=== PATIENT | female | born 1950 | race Caucasian/White ===

== ENCOUNTER → 2018-03-11 14:30 | Outpatient (CLI) | payer MEDICARE, SELFPAY ==
--- NOTE | 2018-03-11 14:30 | DT_ITS ---
This patient was seen during an EMR downtime March 09, 2018 - March 16, 2018. This patient may have a combination of paper and electronic documentation or all paper documentation. All documentation is viewable within the e-chart portion of [facility] for each patient visit.
== END ==
PROVIDERS: Family Provider Family Medicine; PCP Family Medicine; Visit Provider Family Medicine
DX: N39.0 Urinary tract infection, site not specified (principal)
CPT/HCPCS: 87077; 87086; 87088; 87186

== ENCOUNTER → 2018-03-12 08:42 | Outpatient (CLI) | payer MEDICARE, SELFPAY ==
--- NOTE | 2018-03-12 08:42 | DT_ITS ---
This patient was seen during an EMR downtime March 09, 2018 - March 16, 2018. This patient may have a combination of paper and electronic documentation or all paper documentation. All documentation is viewable within the e-chart portion of [facility] for each patient visit.
[2018-03-17 02:56] LABS: BUN 19 mg/dL (7-18); BUN/Creat Ratio 20.4 RATIO (10-20); Cholesterol 145 mg/dL (200); Creatinine, Serum 0.93 mg/dL (0.55-1.02); EST Glomerular Filtration Rate 64 mL/min (>60); Est Glom Filt Rate - Afr Amer 78 mL/min (>60); Glucose 94 mg/dL (74-106); Potassium 3.6 mmol/L (3.5-5.1); Sodium Level 144 mmol/L (136-145); Triglycerides 66 mg/dL; Very Low Density Lipoprotein 13 mg/dL (5-40)
[2018-03-17 02:57] LABS: Anion Gap 8 (5-15); Chloride 109 mmol/L (98-107); High Density Lipoprotein 82 mg/dL; Thyroid Stim Hormone (TSH) 0.53 uIU/mL (0.358-3.74)
== END ==
PROVIDERS: Family Provider Family Medicine; PCP Family Medicine; Visit Provider Family Medicine
DX: E78.5 Hyperlipidemia, unspecified (principal); E03.9 Hypothyroidism, unspecified
CPT/HCPCS: 36415; 80048; 80061; 84443

== ENCOUNTER → 2018-08-24 09:59 | Outpatient (CLI) | payer MEDICARE, SELFPAY ==
--- NOTE | 2018-08-24 10:09 | RAD_ITS ---
STUDY: X-RAY - LEFT KNEE REASON FOR EXAM: Anterior knee pain radiating medially, no specific injury. TECHNIQUE: 4 view(s) of the knee. COMPARISON: None. FINDINGS: Normal visualized distal femur. Normal visualized proximal tibia and fibula. Normal proximal tibiofibular articulation. There is canq-sh-kpptqkmd joint space narrowing of the medial femorotibial compartment. Normal lateral femorotibial compartment. There is mild joint space narrowing of the patellofemoral articulation. There is an enthesophyte at the superior pole of the patella. RAD/Knee 4 or More Views IMPRESSION: Arthrosis of the medial femorotibial and patellofemoral compartments. Electronically Signed: Mike León MD at 11:39 EST Tel , Service support ,
[2018-08-24 13:01] LABS: T3 Total - Triiodothyronine 0.83 ng/mL (0.6-1.81)
[2018-08-24 13:10] LABS: Anion Gap 9 (5-15); BUN 20 mg/dL (7-18); BUN/Creat Ratio 21.6 RATIO (10-20); Calcium,Total 9.2 mg/dL (8.5-10.1); Chloride 106 mmol/L (98-107); Cholesterol 167 mg/dL (200); Creatinine, Serum 0.93 mg/dL (0.55-1.02); EST Glomerular Filtration Rate 64 mL/min (>60); Est Glom Filt Rate - Afr Amer 77 mL/min (>60); Glucose 91 mg/dL (74-106); High Density Lipoprotein 83 mg/dL; Potassium 4.2 mmol/L (3.5-5.1); Sodium Level 143 mmol/L (136-145); T4 Total, Thyroxin 13.1 ug/dL (4.8-13.9); Thyroid Stim Hormone (TSH) 1.38 uIU/mL (0.358-3.74); Triglycerides 80 mg/dL; Very Low Density Lipoprotein 16 mg/dL (5-40)
== END ==
PROVIDERS: Family Provider Family Medicine; PCP Family Medicine; Referring Provider Family Medicine; Visit Provider Family Medicine
DX: E78.5 Hyperlipidemia, unspecified (principal); I10 Essential (primary) hypertension; E03.9 Hypothyroidism, unspecified; M17.12 Unilateral primary osteoarthritis, left knee
CPT/HCPCS: 36415; 73564; 80048; 80061; 84436; 84443; 84480

== ENCOUNTER → 2018-09-18 10:36 | Outpatient (CLI) | payer MEDICARE, SELFPAY ==
--- NOTE | 2018-09-18 10:39 | BI_ITS ---
MAMMOGRAPHY - BILATERAL SCREENING REASON FOR EXAM: Female, 68 years old. Routine annual screening examination. PERTINENT HISTORY: Aunt with breast cancer. TECHNIQUE: Digital bilateral breast ke (3D mammographic acquisition) in the CC and MLO projections. 2-D mediolateral oblique (MLO) and craniocaudad (CC) views of both breasts were obtained. CAD: Full Field Digital Mammography with Computer Added Detection was performed. COMPARISON: Comparison is made with prior study dated September 03, 2017 and August 26, 2016. FINDINGS: Breast Composition: The breasts are heterogeneously dense, which may obscure small masses. There are no dominant masses or suspicious calcifications. No other significant abnormalities are identified. There has been no significant change since the prior study. BI/SCREENING MAMM (CAD), BILAT IMPRESSION: Stable bilateral screening mammogram. Yearly follow-up mammogram recommended. (A) ASSESSMENT CATEGORY: BIRADS Category 1: Negative. A letter regarding these results will be sent to the patient by the facility within 30 days. Approximately 10% of breast cancers are not detected by mammography. A normal mammogram should not delay biopsy of a clinically suspicious abnormality. [id number] Electronically Signed: Jeremi Doe MD at 13:41 EST Tel [phone], Service support ,
--- OUTSIDE RECORDS SUMMARY | 2018-11-04 01:39 | XMS RPT_ITS ---
:1950 Author Organization OHIP Care Team Providers Name Role Phone Francisco Curran Attending Unavailable Bina, Francisco Primary Care Unavailable Curran, Francisco Primary Care Unavailable Santiago Cervantes Attending Unavailable Curran, Francisco Attending Unavailable Curran, Francisco Primary Care Unavailable Bina, Francisco Attending Unavailable Curran, Francisco Primary Care Unavailable Bina, Francisco Attending Unavailable Bina, Francisco Referring Unavailable Bina, Francisco Primary Care Unavailable PROBLEMS PROBLEMS DATE TYPE CONDITION / CODE ATTENDING STATUS SOURCE 08/24/2018 Unknown E78.5 - Francisco Curran Active [facility] Hyperlipidemia, Community unspecified / Hospital E78.5(ICD-10) Repository 08/24/2018 Unknown M25.569 - Pain in CurranFrancisco herrera Active [place] unspecified knee / Community M25.569(ICD-10) Hospital Repository 08/24/2018 Unknown I10 - Essential Francisco Curran Active [facility] (primary) Community hypertension / Hospital I10(ICD-10) Repository 08/24/2018 Unknown E03.9 - Francisco Curran Active [place] Hypothyroidism, Community unspecified / Hospital E03.9(ICD-10) Repository 04/02/2018 Unknown N39.0 - Urinary CurranFrancisco herrera Active [facility] tract infection, Community site not specified Hospital / N39.0(ICD-10) Repository PROCEDURES PROCEDURES No Procedure Records FoundRESULTS RESULTS Observed: 10/12/2018 Status: F Source: [place] CULTURE, URINE 11:50 AM [facility] REPOSITORY Urine Culture ORGANISM 1: Escherichia coli Maynard Count >100,000 Escherichia coli: REACTION Amoxacillin/Clavulanic Acid $ <=2 S Ampicillin $ <=2 S Ampicillin/Sulbactam $ <=2 S Cefazolin $ <=4 S Cefepime $ <=1 S Ceftriaxone $ <=1 S Ciprofloxacin $ <=0.25 S ESBL - Ertapenim $$$ <=0.5 S Gentamicin $ <=1 S Imipenem *NF <=0.25 S Levofloxacin $ <=0.12 S Nitrofurantoin $ <=16 S Piperacillin/Tazobactam $$ <=4 S Tobramycin $ <=1 S Trimethoprim/Sulfametho $ <=20 S (NF) indicates non-formulary drug at [facility]. Approval by Infectious Disease Specialist required before non-formulary drugs may be ordered and/or dispensed. Performed By: #### M100.0650 #### [facility] [address] [facility] [place], [address] SCREENING MAMM (CAD), Observed: 09/18/2018 Status: F Source: [place] BILAT 10:39 AM [facility] REPOSITORY [facility] Imaging Services [address] [place] [address] SCREENING MAMM (CAD), BILAT MR#: [id number] Acct: [id number] Name: BLANCA GAMBINO Rep #: [id number] : 1950 F 68 From: Jeremi Doe MD PCP: Francisco Curran MD Status: [facility] Study: SCREENING MAMM (CAD), BILAT Date of Exam: 09/18/18 Exam# [id number] Ordering Dr: Francisco Curran MD MAMMOGRAPHY - BILATERAL SCREENING REASON FOR EXAM: Female, 68 years old. Routine annual screening examination. PERTINENT HISTORY: Aunt with breast cancer. TECHNIQUE: Digital bilateral breast ke (3D mammographic acquisition) in the CC and MLO projections. 2-D mediolateral oblique (MLO) and craniocaudad (CC) views of both breasts were obtained. CAD: Full Field Digital Mammography with Computer Added Detection was performed. COMPARISON: Comparison is made with prior study dated 2017 and August 26, 2016. FINDINGS: Breast Composition: The breasts are heterogeneously dense, which may obscure small masses. There are no dominant masses or suspicious calcifications. No other significant abnormalities are identified. There has been no significant change since the prior study. BI/SCREENING MAMM (CAD), BILAT IMPRESSION: Stable bilateral screening mammogram. Yearly follow-up mammogram recommended. (A) ASSESSMENT CATEGORY: BIRADS Category 1: Negative. A letter regarding these results will be sent to the patient by the facility within 30 days. Approximately 10% of breast cancers are not detected by mammography. A normal mammogram should not delay biopsy of a clinically suspicious abnormality. [id number] Electronically Signed: Jeremi Doe MD at 13:41 EST Tel [phone], Service support , CC: Francisco Curran MD Senior Associate: Signed KNEE 4 OR MORE Observed: 08/24/2018 Status: F Source: [place] VIEWS 10:06 AM [facility] REPOSITORY [facility] Imaging Services [address] [place] [address] Knee 4 or More Views MR#: [id number] Acct: [id number] Name: BLANCA GAMBINO Roney Rep #: [id number] : 1950 F 67 From: Mike León MD PCP: Francisco Curran MD Status: REG CLI Study: Knee 4 or More Views Date of Exam: 08/24/18 Exam# [id number] Ordering Dr: Francisco Curran MD STUDY: X-RAY - LEFT KNEE REASON FOR EXAM: Anterior knee pain radiating medially, no specific injury. TECHNIQUE: 4 view(s) of the knee. COMPARISON: None. FINDINGS: Normal visualized distal femur. Normal visualized proximal tibia and fibula. Normal proximal tibiofibular articulation. There is qsge-ug-giofqtom joint space narrowing of the medial femorotibial compartment. Normal lateral femorotibial compartment. There is mild joint space narrowing of the patellofemoral articulation. There is an enthesophyte at the superior pole of the patella. RAD/Knee 4 or More Views IMPRESSION: Arthrosis of the medial femorotibial and patellofemoral compartments. Electronically Signed: Mike León MD at 11:39 EST Tel , Service support , CC: Francisco Curran MD Senior Associate: Signed T3 TOTAL - TRIIODOTHYRONINE Collected: 08/24/2018 Status: F Source: [place] 10:05 AM [facility] REPOSITORY TYPE CODE TESTS RESULT OUT OF RANGE REFERENCE UNITS LAB L501.9186 0.6-1.81 ng/mL Normal T3 Total 0.83 Performed By: #### L501.9186 #### [facility] [address] [place], [place], [address] BASIC METABOLIC Collected: 08/24/2018 Status: F Source: [place] PROFILE (BMP) 10:05 AM [facility] REPOSITORY TYPE CODE TESTS RESULT OUT OF RANGE REFERENCE UNITS LAB L501.0100 74-106 mg/dL Normal GLU 91 Result Comment: Please note revised GLUCOSE reference range effective 2017. LAB L501.1000 7-18 mg/dL High BUN 20 LAB L501.1100 0.55-1.02 mg/dL Normal CREAT,SERUM 0.93 Result Comment: The validity of the calculated GFR AND GFRAA in patients over 70 years has not been determined. Clinical correlation is essential. LAB L501.1110 >60 mL/min Normal EST GFR 64 Result Comment: Non- GFR Calc LAB L501.1115 >60 mL/min Normal EST GFR - AA 77 Result Comment: GFR Calc LAB L501.1300 10-20 RATIO High BUN/CRE 21.6 LAB L501.2200 8.5-10.1 mg/dL CA Normal 9.2 LAB L501.5300 136-145 mmol/L NA Normal 143 LAB L501.5600 3.5-5.1 mmol/L K Normal 4.2 LAB L501.5900 98-107 mmol/L CL Normal 106 LAB L501.6100 21.0-32.0 mmol/L Normal CO2 28.0 LAB L501.6200 5-15 Normal GAP 9 Performed By: #### L500.2500, L500.4100, L501.9310, L501.9520 #### [facility] [address] [facility] [place], [address] LIPID PROFILE Collected: 08/24/2018 Status: F Source: [place] 10:05 AM [facility] REPOSITORY TYPE CODE TESTS RESULT OUT OF RANGE REFERENCE UNITS LAB L501.4900 200 mg/dL Normal CHOL 167 Result Comment: <200 mg/dL Desirable 200-240 mg/dL Borderline >240 mg/dL High Risk LAB L501.5000 mg/dL Normal TRIG 80 Result Comment: The drugs N-Acetylcysteine and Metamizole may falsely depress this assay. Serum Triglycerides Reference Interval Normal <150 mg/dL Borderline high 150 - 199 mg/dL High 200 - 499 mg/dL Very High > or = 500 mg/dL LAB L501.6400 mg/dL Normal HDL 83 Result Comment: The drugs N-Acetylcysteine and Metamizole may falsely depress this assay. Reference Range HDL <40 mg/dL Low HDL Cholesterol HDL >or= 60 mg/dL High HDL Cholesterol LAB L501.6500 0-130 mg/dL Normal LDL 68 LAB L501.6600 5-40 mg/dL Normal VLDL 16 Performed By: #### L500.2500, L500.4100, L501.9310, L501.9520 #### [facility] [address] [place], [address] T4 TOTAL, THYROXIN Collected: 08/24/2018 Status: F Source: [place] 10:05 AM [facility] REPOSITORY TYPE CODE TESTS RESULT OUT OF RANGE REFERENCE UNITS LAB L501.9310 4.8-13.9 ug/dL T4 Normal THYROXIN 13.1 Performed By: #### L500.2500, L500.4100, L501.9310, L501.9520 #### [facility] [address] [place], [address] THYROID STIM HORMONE Collected: 08/24/2018 Status: F Source: [place] (TSH) 10:05 AM [facility] REPOSITORY TYPE CODE TESTS RESULT OUT OF RANGE REFERENCE UNITS LAB L501.9520 0.358-3.74 uIU/mL Normal TSH 1.38 Performed By: #### L500.2500, L500.4100, L501.9310, L501.9520 #### [facility] [address] [place], [address] DOWNTIME REPORT Observed: 03/26/2018 Status: F Source: [place] 1:[address] [facility] Medical Records Department [address] [place] [address] Downtime Report MR#: [id number] Acct: [id number] Name: BLANCA GAMBINO Rep #: [id number] : 1950 67 From: Berny Brush PCP: Francisco Curran MD Status: REG CLI This patient was seen during an EMR downtime March 09, 2018 - March 16, 2018. This patient may have a combination of paper and electronic documentation or all paper documentation. All documentation is viewable within the e-chart portion of [facility] for each patient visit. DOWNTIME REPORT Observed: 03/26/2018 Status: F Source: [place] 1:[address] [facility] Medical Records Department [address] [place] [address] Downtime Report MR#: [id number] Acct: [id number] Name: BLANCA GAMBINO Rep #: [id number] : 1950 67 From: Berny Brush PCP: Francisco Curran MD Status: REG CLI This patient was seen during an EMR downtime March 09, 2018 - March 16, 2018. This patient may have a combination of paper and electronic documentation or all paper documentation. All documentation is viewable within the e-chart portion of [facility] for each patient visit. BASIC METABOLIC Collected: 03/12/2018 Status: F Source: [place] PROFILE (BMP) 8:42 AM [facility] REPOSITORY Order Comment: RESULT(S) PREVIOUSLY REPORTED ON MANUAL REQUISITION DURING DOWNTIME. TYPE CODE TESTS RESULT OUT OF RANGE REFERENCE UNITS LAB L501.0100 74-106 mg/dL Normal GLU 94 Result Comment: Please note revised GLUCOSE reference range effective 2017. LAB L501.1000 7-18 mg/dL High BUN 19 LAB L501.1100 0.55-1.02 mg/dL Normal CREAT,SERUM 0.93 Result Comment: The validity of the calculated GFR AND GFRAA in patients over 70 years has not been determined. Clinical correlation is essential. LAB L501.1110 >60 mL/min Normal EST GFR 64 LAB L501.1115 >60 mL/min Normal EST GFR - AA 78 LAB L501.1300 10-20 RATIO High BUN/CRE 20.4 LAB L501.2200 8.5-10.1 mg/dL Normal CA 9.0 LAB L501.5300 136-145 mmol/L Normal NA 144 LAB L501.5600 3.5-5.1 mmol/L Normal K 3.6 LAB L501.5900 98-107 mmol/L High CL 109 LAB L501.6100 21.0-32.0 mmol/L Normal CO2 27.0 LAB L501.6200 5-15 Normal GAP 8 Performed By: #### L500.2500, L500.4100, L501.9520 #### [facility] [address] [place], [place], [address] LIPID PROFILE Collected: 03/12/2018 Status: F Source: [place] 8:42 AM [facility] REPOSITORY Order Comment: RESULT(S) PREVIOUSLY REPORTED ON MANUAL REQUISITION DURING DOWNTIME. TYPE CODE TESTS RESULT OUT OF RANGE REFERENCE UNITS LAB L501.4900 200 mg/dL Normal CHOL 145 Result Comment: <200 mg/dL Desirable 200-240 mg/dL Borderline >240 mg/dL High Risk LAB L501.5000 mg/dL Normal TRIG 66 Result Comment: The drugs N-Acetylcysteine and Metamizole may falsely depress this assay. Serum Triglycerides Reference Interval Normal <150 mg/dL Borderline high 150 - 199 mg/dL High 200 - 499 mg/dL Very High > or = 500 mg/dL LAB L501.6400 mg/dL Normal HDL 82 Result Comment: The drugs N-Acetylcysteine and Metamizole may falsely depress this assay. Reference Range HDL <40 mg/dL Low HDL Cholesterol HDL >or= 60 mg/dL High HDL Cholesterol LAB L501.6500 0-130 mg/dL Normal LDL 50 LAB L501.6600 5-40 mg/dL Normal VLDL 13 Performed By: #### L500.2500, L500.4100, L501.9520 #### [facility] [address] [facility] [place], [address] THYROID STIM HORMONE Collected: 03/12/2018 Status: F Source: [place] (TSH) 8:42 AM [facility] REPOSITORY Order Comment: RESULT(S) PREVIOUSLY REPORTED ON MANUAL REQUISITION DURING DOWNTIME. TYPE CODE TESTS RESULT OUT OF RANGE REFERENCE UNITS LAB L501.9520 0.358-3.74 uIU/mL Normal TSH 0.53 Performed By: #### L500.2500, L500.4100, L501.9520 #### [facility] [address] [facility] [place], [address] Observed: 03/11/2018 Status: F Source: [place] CULTURE, URINE 2:30 PM [facility] REPOSITORY Urine Culture RESULT(S) PREVIOUSLY REPORTED ON MANUAL REQUISITION DURING DOWNTIME. ORGANISM 1: Enterococcus faecalis Maynard Count 80,000-100,000 Enterococcus faecalis: REACTION Ampicillin $ <=2 S Benzylpenicillin NF 2 S Gentamicin SYN-R R Linezolid $$$$ 1 S Tigecycline $$$$ <=0.12 S Streptomycin $ SYN-S S Vancomycin $ 1 S (NF) indicates non-formulary drug at [facility]. Approval by Infectious Disease Specialist required before non-formulary drugs may be ordered and/or dispensed. * CLSI guidelines does not recommend testing of cephalosporins. This interpretation is deduced from Beta-lactam/penicillin results. Performed By: #### M100.0650 #### [facility] [address] [place], [address] ALLERGIES ALLERGIES DATE TYPE / CODE NAME / CODE REACTION SEVERITY SOURCE 10/16/2016 Drug latex/S25304 Rash Unknown [facility] Allergy/4160 8921(RXNORM) Hospital 33209(SNOMED Repository CT) ENCOUNTERS ENCOUNTERS ADMIT/DISCHARGE ACCOUNT ADMITTING ENCOUNTER LOCATION SOURCE NUMBER CLASS 10/12/2018 [id number] Ambulatory [place] 1 [facility] ing:LABSPEC Repository 09/18/2018 [id number] Ambulatory [place] [facility] 9 [facility] ing:OPBI Repository 08/24/2018 [id number] Ambulatory [place] [facility] 0 [facility] ing:MTLAB Repository 03/12/2018 [id number] Ambulatory [place] 7 [facility] ing:MFPLAB Repository 03/11/2018 [id number] Ambulatory [place] 9 [facility] ing:MFPLAB Repository PAYERS PAYERS ENCOUNTER GUARANTOR PAYER SUBSCRIBER SOURCE 10/12/2018 BUTCH Lea Primary BLANCA A [place] [id number] RUFF Insurance:ANTHEM MEDUREDOB: [place] PPOPolicy [id number] 22821Kgz: (419) Number: Repository [phone] () [id number] Date:[id number] [address] [place] [address] 27721JG: 10/12/2018 Secondary NOT GIVENUNK [place] Insurance:SELF PAY [facility] Number: Effective Repository Date:2018-10-12 09/18/2018 BUTCH Lea Primary BLANCA A [place] [id number] RUFF Insurance:ANTHEM MEDUREDOB: [place] PPOPolicy [id number] 13763Lac: (419) Number: Repository [phone] () [id number] Date:[id number] [address] [place] [address] [id number]: 09/18/2018 Secondary NOT GIVENUNK [place] Insurance:SELF PAY [facility] Number: Effective Repository Date:2018-08-19 08/24/2018 BUTCH Lea Primary BLANCA A [place] [id number] RUFF Insurance:ANTHEM MEDUREDOB: Community [place] MEDIC[place] PPOPolicy [id number] [address]98[address]Ruf: (419) Number: Repository [phone] () [id number] Date:[id number] [address] [place] [address] [id number]: 08/24/2018 Secondary NOT GIVENUNK [place] Insurance:SELF PAY [facility] Number: Effective Repository Date:2018-08-24 03/12/2018 Butch Lea Primary BLANCA A [place] [id number] Ruff Insurance:ANTHEM MEDUREDOB: Community [place] MEDICARE OPolicy [id number] [facility] 576[address]Fmj: (419) Number: Repository [phone] () [id number] Date:[id number] [address] [place] [address] [id number]: 03/12/2018 Secondary NOT GIVENUNK [place] Insurance:SELF PAY [facility] Number: Effective Repository Date:2018-03-12 03/11/2018 Butch Lea Primary BLANCA A [place] [id number] Ruff Insurance:ANTHEM MEDUREDOB: [place] MEDIC[place] OPolicy [id number] 417[address]Spp: (419) Number: Repository [phone] () [id number] Date:[id number] [id number] [place] [address] [id number]: 03/11/2018 Secondary NOT GIVENUNK [place] Insurance:SELF PAY [facility] Number: Effective Repository Date:2018-03-11
== END ==
PROVIDERS: Family Provider Family Medicine; PCP Family Medicine; Visit Provider Family Medicine
DX: Z12.31 Encounter for screening mammogram for malignant neoplasm of breast (principal)
CPT/HCPCS: 77063; 77067

== ENCOUNTER → 2018-10-12 12:25 | Outpatient (CLI) | payer MEDICARE, SELFPAY | PROVIDERS: Family Provider Family Medicine; PCP Family Medicine; Visit Provider Nurse Practitioner Family | DX: N39.0 Urinary tract infection, site not specified (principal) | CPT/HCPCS: 87077; 87086; 87088; 87186 ==

== ENCOUNTER → 2019-02-18 09:18 | Outpatient (CLI) | payer MEDICARE, SELFPAY ==
--- NOTE | 2019-02-18 09:20 | RAD_ITS ---
HISTORY: shoulder pain, no injury COMPARISON: 12/02/16 radiographs FINDINGS: XR Shoulder Min 2 Views: Left SOFT TISSUES: No acute findings. No radiopaque foreign body. BONES/JOINTS: No acute fracture or subluxation. Normal alignment. Prominent degenerative changes are noted. No destructive changes observed. RAD/Shoulder min 2 Views IMPRESSION: Prominent degenerative changes. No acute fracture or dislocation. No significant change. at 2125 Reported and signed by: José Miguel Evans MD Electronically Signed: José Miguel Evans, at 21:24 EDT Tel , Service support ,
--- NOTE | 2019-02-18 09:22 | RAD_ITS ---
HISTORY: knee pain, no injury COMPARISON: 08/24/18 left knee radiographs. FINDINGS: XR Knee Complete 4 Views or More: Left SOFT TISSUES: No acute findings. No radiopaque foreign body. BONES/JOINTS: No acute fracture or subluxation. Normal alignment. Degenerative changes similar to prior most prominent in the medial compartment. No destructive changes observed. Spurring upper pole of the patella again demonstrated. RAD/Knee 4 or More Views IMPRESSION: Degenerative changes most prominent in the medial compartment. No acute fracture or dislocation. at 2136 Reported and signed by: José Miguel Evans MD Electronically Signed: José Miguel Evans, at 21:35 EDT Tel , Service support ,
--- NOTE | 2019-02-18 09:22 | RAD_ITS ---
HISTORY: knee pain, no injury COMPARISON: None FINDINGS: XR Knee Complete 4 Views or More: Right. SOFT TISSUES: No acute findings. No radiopaque foreign body. BONES/JOINTS: No acute fracture or subluxation. Normal alignment. Moderate degenerative changes medial compartment. Mild degenerative changes lateral and patellofemoral compartment. Spurring upper pole of the patella. No destructive changes observed. RAD/Knee 4 or More Views IMPRESSION: Degenerative changes most prominent in the medial compartment. No acute fracture or dislocation. at 2135 Reported and signed by: José Miguel Evans MD Electronically Signed: José Miguel Evnas, at 21:34 EDT Tel , Service support ,
--- NOTE | 2019-02-18 09:22 | RAD_ITS ---
HISTORY: pain, no injury EXAM/TECHNIQUE: XR Spine Lumbar Min 4 Views: COMPARISON: CT abdomen pelvis 10/05/16. FINDINGS: # of images incl. paperwork: 5 No fracture or dislocation or osseous destruction. Mild right scoliosis centered at T12, mild grade 1 degenerative anterolisthesis of L3 on L4 and L4 on L5 unchanged. Severe facet degeneration mid and lower lumbar spine. No acute findings in the soft tissues. Cholecystectomy clips right upper quadrant. RAD/L/S Spine Min 4 Views IMPRESSION: No acute findings. Severe facet degeneration lower lumbar spine. at 2138 Reported and signed by: José Miguel Evans MD Electronically Signed: José Miguel Evans, at 21:37 EDT Tel , Service support ,
--- NOTE | 2019-02-18 09:22 | RAD_ITS ---
HISTORY: shoulder pain, no injury COMPARISON: 12/02/16 radiographs. FINDINGS: XR Shoulder Min 2 Views: Right. SOFT TISSUES: No acute findings. No radiopaque foreign body. BONES/JOINTS: No acute fracture or subluxation. Normal alignment. Degenerative changes are noted. Subcentimeter loose body along cephalad aspect of the glenohumeral joint unchanged. No destructive changes observed. RAD/Shoulder min 2 Views IMPRESSION: Degenerative changes with subcentimeter loose body. No acute fracture or dislocation. at 2124 Reported and signed by: José Miguel Evans MD Electronically Signed: José Miguel Evans, at 21:23 EDT Tel , Service support ,
== END ==
PROVIDERS: Family Provider Family Medicine; PCP Family Medicine; Referring Provider Family Medicine; Visit Provider Family Medicine
DX: M19.012 Primary osteoarthritis, left shoulder (principal); M19.011 Primary osteoarthritis, right shoulder; M24.011 Loose body in right shoulder; M51.36 Other intervertebral disc degeneration, lumbar region; M17.0 Bilateral primary osteoarthritis of knee
CPT/HCPCS: 72110; 73030; 73564

== ENCOUNTER → 2019-02-22 09:36 | Outpatient (CLI) | payer MEDICARE, SELFPAY ==
[2019-02-22 13:18] LABS: BUN 23 mg/dL (7-18); Creatinine, Serum 0.88 mg/dL (0.55-1.02); Glucose 89 mg/dL (74-106)
[2019-02-22 13:19] LABS: Anion Gap 8 (5-15); BUN/Creat Ratio 26.1 RATIO (10-20); Calcium,Total 9.1 mg/dL (8.5-10.1); Chloride 109 mmol/L (98-107); Cholesterol 157 mg/dL (200); EST Glomerular Filtration Rate 67 mL/min (>60); Est Glom Filt Rate - Afr Amer 81 mL/min (>60); High Density Lipoprotein 82 mg/dL; Potassium 3.9 mmol/L (3.5-5.1); Sodium Level 144 mmol/L (136-145); Thyroid Stim Hormone (TSH) 1.09 uIU/mL (0.358-3.74); Triglycerides 63 mg/dL; Very Low Density Lipoprotein 13 mg/dL (5-40)
== END ==
PROVIDERS: Family Provider Family Medicine; PCP Family Medicine; Visit Provider Family Medicine
DX: E03.9 Hypothyroidism, unspecified (principal); I10 Essential (primary) hypertension
CPT/HCPCS: 36415; 80048; 80061; 84443

== ENCOUNTER → 2019-07-19 11:40 | Outpatient (CLI) | payer MEDICARE, SELFPAY ==
--- NOTE | 2019-07-19 11:43 | RAD_ITS ---
STUDY: X-RAY - ACUTE ABDOMINAL SERIES REASON FOR EXAM: Female, 68 years old. Left flank pain TECHNIQUE: Single view of the chest. Supine, and upright view(s) of the abdomen were obtained. COMPARISON: None. FINDINGS: The lungs are clear and expanded. Normal size heart. Normal mediastinum and mirian. Normal visualized pulmonary arteries. Normal visualized aortic arch and descending thoracic aorta. There is a non-specific bowel gas pattern. Postop changes status post cholecystectomy.. Lumbar spine demonstrates scoliosis and degenerative change. RAD/Acute Abdomen Inc Chest IMPRESSION: Nonspecific abdomen and pelvis. Electronically Signed: Huan Brandt MD at 17:12 EDT , Service support ,
== END ==
PROVIDERS: Family Provider Family Medicine; PCP Family Medicine; Referring Provider Nurse Practitioner Family; Visit Provider Nurse Practitioner Family
DX: R10.9 Unspecified abdominal pain (principal)
CPT/HCPCS: 74022; 87086

== ENCOUNTER → 2019-08-23 09:33 | Outpatient (CLI) | payer MEDICARE, SELFPAY ==
[2019-08-23 13:09] LABS: AST(SGOT) 34 U/L (15-37); Alanine Aminotransfer ALT/SGPT 48 U/L (13-56); Albumin, Serum 3.6 g/dL (3.2-5.0); Alkaline Phosphatase 94 U/L (45-117); Anion Gap 8 (5-15); BUN 22 mg/dL (7-18); BUN/Creat Ratio 24.5 RATIO (10-20); Calcium,Total 9.1 mg/dL (8.5-10.1); Chloride 107 mmol/L (98-107); Cholesterol 192 mg/dL (200); EST Glomerular Filtration Rate 66 mL/min (>60); Est Glom Filt Rate - Afr Amer 80 mL/min (>60); Globulin 3.5 g/dL (2.2-4.2); Glucose 84 mg/dL (74-106); High Density Lipoprotein 100 mg/dL; Potassium 3.6 mmol/L (3.5-5.1); Protein, Total 7.1 g/dL (6.4-8.2); Sodium Level 141 mmol/L (136-145); Thyroid Stim Hormone (TSH) 6.28 uIU/mL (0.358-3.74); Triglycerides 83 mg/dL; Very Low Density Lipoprotein 17 mg/dL (5-40)
== END ==
PROVIDERS: Family Provider Family Medicine; PCP Family Medicine; Visit Provider Family Medicine
DX: E78.00 Pure hypercholesterolemia, unspecified (principal); E03.9 Hypothyroidism, unspecified
CPT/HCPCS: 36415; 80053; 80061; 84443

== ENCOUNTER 2019-08-27 14:49 | Outpatient (RCR) | payer MEDICARE, SELFPAY ==
[2019-08-23 10:32] VITALS: BMI 29.0
--- NOTE | 2019-08-30 08:16 | HP.PTEVAL ---
Patient's Visit Information BLANCA GAMBINO is a 68 year old F referred to Physical Therapy by Иван Forbes DO with a diagnosis of B shoulder OA. Date of Evaluation: 08/27/19 Physical Therapist: Jm Lewis DPT - Visit Plan Frequency: 1x/Week Duration: 4 Weeks Plan: Start with HEP for gentle AROM, and shoulder stability/strengthening exercises. Pt. advised to avoid painful exercises. Pt. desired to complete on own. I have to follow up with PT in 2 weeks if needed. Pt. will be DC in 4 weeks if no follow up has occured. - Subjective Findings: Pt. is here today for her initial evaluation with diagnosis of B shoulder OA. Pt. reports having pain for a few years, but has become much worse over the past year. She reports increased pain with lifting, dressing, bathing (especially hair and behind her back), sleep and household work. Pt. denies N/T in either UE. Pt. reports a lot of crepitus with most shoulder mobility. She did recently have injections which have helped. She was given several options including: PT, injection and/or surgery.Pt. chose PT and injection. Pt. 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 - Pain R shoulder Pain Intensity (Out of 10): 2 Pain Intensity Range: 1, 6 L shoulder Pain Intensity (Out of 10): 2 Pain Intensity Range: 1, 6 - Objective POSTURE: Pt. has rounded shoulders, FH posture, Pt. is able to correct. PALPATION: Increased pain at anterior sholders bilaterally. Pain at bicipital groove bilaterally. NEURO: normal throughout. Normal sensation and DTR of UEs. ROM: R shoulder- flexion 135deg increase NW, abd 115deg increase NW, functional ER C3 increase NW, functional IR L5 increase NW, L shoulder- flexion 145deg, abd 110deg, functional ER C3, functional IR L5. Increased symptoms with all motions. Pt. had crepitus noted throughout her movements. MMT: Pt. has 4/5 strength throughout bilateral UEs, including her RTC. - Goals Goal 1:: Pt. to be I with HEP. Goal Time Frame: 4-6 Weeks Goal 2:: Pt. to sleep throughout the night without increase in symptoms. Goal Time Frame: 4-6 Weeks Goal 3:: Pt. to have increased AROM of B shoulder by 25% in all directions without increase in symptoms. 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 Goal Time Frame: 4-6 Weeks Goal 5:: Pt. to have increased strength by 1/2 grade of all effected musculature of B shoulders. Goal Time Frame: 4-6 Weeks - Rehabilitation Potential Physical Therapy Diagnosis: Pt. has signs and symptoms consistent with B shoulder OA with subsequent limited ROM and decreased strength. Pt. reported that on the day of the evaluation she was having a good day. Pt. would benefit from PT to work on AROM and gentle strengthening in order to increase tolerance to all activities. Rehabilitation Potential: Good - Anticipated Interventions Patient/Client Instruction: Educate patient on: Condition, Plan of Care, Risk Factors, Benefits of Fitness Program For the Purpose of:: To foster healthy habits, To improve decision making, To facilitate caregiver knowledge, To improve self management, To prevent re-injury, To improve ability to perform tasks related to life management, To improve tolerance to ADL's Therapeutic Exercise to Include: Strength training, Power training, Endurance training, Body mechanics, Flexibilty training, Active ROM For the Purpose of:: To decrease pain, To decrease swelling/inflammation, To increase ROM Thank you for the opportunity to evaluate your patient. For Medicare and Medicare HMO plans, please review the plan of care and approve it. It will need to be FAXED BACK to us at [phone] for Medicare purposes. For Medicare only, by signing this I certify the plan of care. Please let me know if there are questions or concerns regarding this plan of care. Physician Signature: Date:
== END 2019-08-27 19:00 | disposition home or self-care (01) ==
LOC: PT 14:49
PROVIDERS: Family Provider Family Medicine; PCP Family Medicine; Referring Provider Orthopaedic Surgery; Visit Provider Orthopaedic Surgery
DX: M19.012 Primary osteoarthritis, left shoulder (principal); M19.011 Primary osteoarthritis, right shoulder
CPT/HCPCS: 97110; 97161

== ENCOUNTER → 2020-02-21 09:23 | Outpatient (CLI) | payer MEDICARE, SELFPAY ==
[2019-08-23 10:32] VITALS: BMI 29.0
[2020-02-21 10:24] LABS: T3 Total - Triiodothyronine 1.23 ng/mL (0.6-1.81)
[2020-02-21 10:38] LABS: Anion Gap 4 (5-15); BUN 23 mg/dL (7-18); Calcium,Total 9.4 mg/dL (8.5-10.1); Chloride 110 mmol/L (98-107); Cholesterol 176 mg/dL (200); Creatinine, Serum 0.82 mg/dL (0.55-1.02); EST Glomerular Filtration Rate 73 mL/min (>60); Est Glom Filt Rate - Afr Amer 88 mL/min (>60); Glucose 98 mg/dL (74-106); High Density Lipoprotein 95 mg/dL; Potassium 3.7 mmol/L (3.5-5.1); Sodium Level 142 mmol/L (136-145); T4 Free Direct 1.55 ng/dL (0.76-1.46); Thyroid Stim Hormone (TSH) 0.35 uIU/mL (0.358-3.74); Triglycerides 63 mg/dL; Very Low Density Lipoprotein 13 mg/dL (5-40)
[2020-02-21 15:33] LABS: T4 Total, Thyroxin 12.8 ug/dL (4.8-13.9)
== END ==
PROVIDERS: PCP Family Medicine; Visit Provider Family Medicine
DX: Z00.00 Encounter for general adult medical examination without abnormal findings (principal); E03.9 Hypothyroidism, unspecified
CPT/HCPCS: 36415; 80048; 80061; 84436; 84439; 84443; 84480

== ENCOUNTER → 2020-03-09 15:16 | Outpatient (CLI) | payer MEDICARE, SELFPAY ==
[2019-08-23 10:32] VITALS: BMI 29.0
--- NOTE | 2020-03-09 15:19 | BI_ITS ---
MAMMOGRAPHY - BILATERAL SCREENING REASON FOR EXAM: Female, 69 years old. Routine annual screening examination. PERTINENT HISTORY: Aunt with breast cancer. TECHNIQUE: Digital bilateral breast harry (3D mammographic acquisition) in the CC and MLO projections. 2-D mediolateral oblique (MLO) and craniocaudad (CC) views of both breasts were obtained. CAD: Full Field Digital Mammography with Computer Added Detection was performed. COMPARISON: Comparison is made with prior study dated September 18, 2018 and September 03, 2017. FINDINGS: Breast Composition: The breasts are heterogeneously dense, which may obscure small masses. There are no dominant masses or suspicious calcifications. No other significant abnormalities are identified. There has been no significant change since the prior study. BI/SCREEN MAMM (CAD) W/HARRY BILAT IMPRESSION: Stable bilateral screening mammogram. Yearly follow-up mammogram recommended. (A) ASSESSMENT CATEGORY: BIRADS Category 1: Negative. A letter regarding these results will be sent to the patient by the facility within 30 days. Approximately 10% of breast cancers are not detected by mammography. A normal mammogram should not delay biopsy of a clinically suspicious abnormality. [id number] Electronically Signed: Jeremi Doe, at 8:54 EDT , Service support ,
--- NOTE | 2020-03-09 15:21 | BD_ITS ---
STUDY: DUAL ENERGY X-RAY ABSORPTIOMETRY / DXA REASON FOR EXAM: Female, 69 years old. 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 COMPARISON: Comparison is made with prior study dated August 12, 2017. FINDINGS: Lumbar Spine (L1-L4): g/cm2 (1.032) / T-score (-1.1) / Z-score (0.6) Findings are suggestive of osteopenia with a low fracture risk. Left Femur Total: g/cm2 (0.980) / T-score (-0.2) / Z-score (1.3) Left Femoral Neck: g/cm2 (0.963) / T-score (-0.5) / Z-score (1.2) Right Femur Total: g/cm2 (0.998) / T-score (-0.1) / Z-score (1.5) Right Femoral Neck: g/cm2 (0.936) / T-score (0.7) / Z-score (1.0) The T-Scores on the most recent prior examination were: Lumbar Spine (L1-L4): There has been worsening of bone density since the previous examination. Left Femur Total: which represents a worsening of 3.8%. Right Femur Total: which represents a worsening of 1.1%. BD/Dexa Bone Density Study IMPRESSION: The patient is considered osteopenic as outlined below according to World Meet Organization (WHO) criteria with a low fracture risk. There has been worsening of bone density since the previous examination. Reference Information: The T-score is the number of standard deviations above or below the standard which is normal for young adults at their peak bone mineral density. The World Health Organization (WHO) interprets the T-scores as follows: Above -1 Normal bone density Between -1 and -2.5 Osteopenia Equal to / or below -2.5 Osteoporosis As a practical clinical guideline, osteopenia may be graded as follows: Mild -1 through -1.5 Moderate -1.6 through -2.0 Severe -2.1 through -2.4 The Z-score is the number of standard deviations above or below age-matched controls. A Z-score of less than -1.5 would be considered abnormal. References: 1. NIH Osteoporosis and Related Bone Diseases http://www.osteo.org 2. International Society for Clinical Densitometry http://www.iscd.org 3. National Osteoporosis Foundation http://www.nof.org Electronically Signed: Jeremi Doe, at 15:43 EDT , Service support ,
== END ==
PROVIDERS: PCP Family Medicine; Referring Provider Family Medicine; Visit Provider Family Medicine
DX: Z00.00 Encounter for general adult medical examination without abnormal findings (principal); N95.9 Unspecified menopausal and perimenopausal disorder; Z12.31 Encounter for screening mammogram for malignant neoplasm of breast
CPT/HCPCS: 77063; 77067; 77080